=== PATIENT | male | born 1990 | race Caucasian/White ===

== ENCOUNTER 2025-05-17 16:23 | Emergency (ER) | payer MEDICAID, SELFPAY ==
[2025-05-17 16:23] VITALS: BMI 29.6
[2025-05-17 16:33] VITALS: BP 162/93; PULSE 94; RESP 18; TEMP 36.8; O2SAT 98
--- NOTE | 2025-05-17 16:43 | PD.EDBACK ---
ED Back Injury Pain RME/HPI General Chief Complaint: Back Pain/Injury Stated Complaint: PULLED SOMETHING IN BACK Time Seen by Provider: 05/17/25 16:24 Arrival date/time: 05/17/25 16:23 This is a 34-year-old male that comes in with complaints of mid back pain that started after lifting a heavy object at home today. Patient states that he feels like he pulled something. Patient already had existing back pain to this area. Patient is waiting to get his MRI with his primary provider. Patient denies any numbness tingling. Patient denies any loss of bowel or bladder control. Patient ambulatory. Related Data Home Medications ?Medication ?Instructions ?Recorded ?Confirmed omeprazole 40 mg capsule,delayed 40 mg PO BID 11/14/22 11/14/22 release Previous Rx's ?Medication ?Instructions ?Recorded albuterol sulfate 90 mcg/actuation 2 inh inhalation Q4H PRN shortness 01/18/23 aerosol inhaler of breath or wheezing #8.5 grams ibuprofen 800 mg tablet (IBU) 800 mg PO Q8H #20 tabs 04/05/24 Allergies Allergy/AdvReac Type Severity Reaction Status Date / Time No Known Allergies Allergy Verified 05/17/25 16:26 Course Orders Category Date Time Status CYCLObenzaPRINE [Flexeril] Med 05/17/25 16:43 Discontinued 10 mg PO X1 ONE HYDROcodone*/APAP 5/325 [[place] 5/325] Med 05/17/25 16:43 Discontinued 2 tab PO X1 ONE Ketorolac Inj [Toradol Inj] Med 05/17/25 16:43 Discontinued 30 mg IM X1 ONE Ondansetron Odt [Zofran Odt] Med 05/17/25 16:43 Discontinued 4 mg PO X1 ONE Vital Signs Vital signs: Vital Signs Temperature 98.3 F 05/17/25 16:33 Pulse Rate 94 05/17/25 16:33 Respiratory Rate 18 05/17/25 16:33 Blood Pressure 162/93 H 05/17/25 16:33 Pulse Oximetry (%) 98 05/17/25 16:33 Oxygen Delivery Method Room Air 05/17/25 16:33 Back Pain / Injury MDM Narrative MDM Narrative:: I spoke to patient at length. Patient is having pain in the exact area that he typically has pain. Patient currently waiting for an MRI with his primary provider. I did talk to him about possibly getting x-rays or CT scan. I would let him know that we can do those test today or I can just treat his pain at this time. Patient would like to just treat acute pain exacerbation. I talked to patient at length that if symptoms change or worsen that he needs to come back to the emergency room immediately. Otherwise to follow-up with primary provider as scheduled and wait for appointment for MRI. Medications / Prescriptions Medication administrations:: Medication Administration History Discontinued Medications Hydrocodone Bitart/Acetaminophen (Hydrocodone/Apap 5/325 Tablet) 2 tab PO X1 ONE Stop: 05/17/25 16:44 Last Admin: 05/17/25 16:51 Dose: 2 tab Documented By: CLOTILDE Cyclobenzaprine HCl (Cyclobenzaprine 5 Mg Tablet) 10 mg PO X1 ONE Stop: 05/17/25 16:44 Last Admin: 05/17/25 16:50 Dose: 10 mg Documented By: CLOTILDE Ketorolac Tromethamine (Ketorolac Inj 60 Mg/2 Ml Vial) 30 mg IM X1 ONE Stop: 05/17/25 16:44 Last Admin: 05/17/25 16:53 Dose: 30 mg Documented By: CLOTILDE Ondansetron HCl (Ondansetron Odt 4 Mg Tabrap) 4 mg PO X1 ONE; Protocol Stop: 05/17/25 16:44 Last Admin: 05/17/25 16:50 Dose: 4 mg Documented By: CLOTILDE Discharge Plan Prescriptions/Referrals Prescriptions/Med Rec: No Action albuterol sulfate 90 mcg/actuation HFA aerosol inhaler 2 inh inhalation Q4H PRN (Reason: shortness of breath or wheezing) Qty: 8.5 0RF omeprazole 40 mg capsule,delayed release(DR/EC) 40 mg PO BID ibuprofen [IBU] 800 mg tablet 800 mg PO Q8H Qty: 20 0RF Referrals: No Primary/Family,Physician [Primary Care Provider] - In 1 week Patient/Caregiver Discharge Instructions Print Language: Divehi
[2025-05-17] MEDS: CYCLObenzaPRINE 5 MG TABLET 10 MG PO (16:50)
[2025-05-17] MEDS: ONDANSETRON ODT 4 MG TABRAP PO (16:50)
[2025-05-17] MEDS: HYDROcodone/APAP 5/325 TABLET 2 TAB PO (16:51)
[2025-05-17] MEDS: KETOROLAC INJ 60 MG/2 ML VIAL 30 MG IM (16:53)
--- NOTE | 2025-05-17 17:34 | PD.EDRME ---
Rapid Medical Screening Exam RME Arrival date/time: 05/17/25 16:23 This is a 34-year-old male that comes in with complaints of mid back pain that started after lifting a heavy object at home today. Patient states that he feels like he pulled something. Patient already had existing back pain to this area. Patient is waiting to get his MRI with his primary provider. Patient denies any numbness tingling. Patient denies any loss of bowel or bladder control. Patient ambulatory. Patient is having pain in the exact area that he typically has pain. Patient currently waiting for an MRI with his primary provider. Patient given norco and toradol for pain and felt better but still felt pressure in mid back. CT thoracic and lumbar spine ordered. I have greeted and performed a focused initial assessment of this patient. Initial appropriate labs ordered at this time. A comprehensive ED assessment and evaluation of the patient and analysis of all test and completion of medical decision making process will be conducted by additional ED provider. Chief Complaint: Back Pain/Injury Time Seen by Provider: 05/17/25 16:24 Vital signs: Vital Signs Temperature 98.3 F 05/17/25 16:33 Pulse Rate 94 05/17/25 16:33 Respiratory Rate 18 05/17/25 16:33 Blood Pressure 162/93 H 05/17/25 16:33 Pulse Oximetry (%) 98 05/17/25 16:33 Oxygen Delivery Method Room Air 05/17/25 16:33
--- NOTE | 2025-05-17 17:38 | XR_ITS ---
Examination: CT thoracic spine, without contrast. 2-D sagittal reconstructions. 2-D coronal reconstructions. 3-D reconstructions. Date and time of exam:May 17, 2025 at 1746 hours INDICATIONS: Injury to the back today, back pain CTDI: vol (mGy):33.6 DLP: (mGycm):1262 Technique: Multiple 1.25 mm axial sections of the thoracic spine without intravenous contrast have been obtained. 2-D sagittal and coronal reconstructions have been obtained. 3-D reconstructions have been obtained. Low dose protocols were performed. One or more of the following dose reduction techniques were used; automated exposure control, adjustment of the mA and/or KV according to patient size, use of iterative reconstruction technique. Findings: Adequate alignment thoracic vertebral bodies on the lateral view No thoracic vertebral body compression fracture Thoracic pedicles, laminae, transverse and posterior spinous processes appear intact Soft tissue settings demonstrate no focal thoracic disc protrusion IMPRESSION: No acute thoracic fracture
--- NOTE | 2025-05-17 17:38 | XR_ITS ---
Examination: CT lumbar spine, without contrast. 2-D sagittal reconstructions. 2-D coronal reconstructions. 3-D reconstructions. Date and time of exam:May 17, 2025 1746 hours INDICATIONS: Injury to the lower back today, lower back pain CTDI: vol (mGy):32.9 DLP: (mGycm):1063 Technique: Multiple 1.25 mm axial sections of the lumbar spine without intravenous contrast have been obtained. 2-D sagittal and coronal reconstructions have been obtained. 3-D reconstructions have been obtained. Low dose protocols were performed. One or more of the following dose reduction techniques were used; automated exposure control, adjustment of the mA and/or KV according to patient size, use of iterative reconstruction technique. Findings: Adequate alignment lumbar vertebral bodies on the lateral view No lumbar vertebral body compression fracture Mild disc narrowing posteriorly at L5-S1 Lumbar pedicles, laminae, transverse and posterior spinous processes intact Soft tissue settings demonstrate no focal lumbar disc protrusion IMPRESSION: No lumbar fracture
[2025-05-17 18:19] VITALS: BP 133/90; PULSE 89; RESP 20; TEMP 36.9; O2SAT 97
--- NOTE | 2025-05-17 18:20 | PC.NURSE ---
Pt. refused to get into a gown.
--- NOTE | 2025-05-17 18:32 | EDNOTE_ITS ---
ED Back Injury Pain RME/HPI General Chief Complaint: Back Pain/Injury Stated Complaint: PULLED SOMETHING IN BACK Time Seen by Provider: 05/17/25 16:24 Arrival date/time: 05/17/25 16:23 RME / HPI RME / HPI Narrative: 05/17/25 16:23 This is a 34-year-old male that comes in with complaints of mid back pain that started after lifting a heavy object at home today. Patient states that he feels like he pulled something. Patient already had existing back pain to this area. Patient is waiting to get his MRI with his primary provider. Patient denies any numbness tingling. Patient denies any loss of bowel or bladder control. Patient ambulatory. Patient is having pain in the exact area that he typically has pain. Patient currently waiting for an MRI with his primary provider. Patient given norco and toradol for pain and felt better but still felt pressure in mid back. CT thoracic and lumbar spine ordered. I have greeted and performed a focused initial assessment of this patient. Initial appropriate labs ordered at this time. A comprehensive ED assessment and evaluation of the patient and analysis of all test and completion of medical decision making process will be conducted by additional ED provider. This section includes all my notes and documentations, including HPI, PE, and ED course. Irineo Franco MD HPI: 34yo male with no significant past medical history presents to the ED for a chief complaint of mid back pain. Patient states he was lifting a dresser a couple hours prior to arrival when he felt something tear in his back, reporting he's had significant pain since. No other injuries. No incontinence, weakness or any other associated symptoms. No other complaints reported. ROS: All negative except as documented in HPI. Physical Exam: General: Alert and oriented. No acute distress when remaining still. Eyes: Conjunctivae and lids clear. ENT: No nasal congestion. Neck: Supple. Heart: RRR. Lungs: No respiratory distress. Good air movement. No rhonchi, wheezing, rales. Abdomen: Soft and nontender. Back: Equivocal mid back spinal tenderness. Skin: Warm and dry. Neuro: Alert and oriented X 3. No peripheral motor deficits. I reviewed all diagnostic test results. My review of the CT thoracic spine report is unremarkable. My review of the CT lumbar spine report is unremarkable. At this point, diagnoses include back sprain. Recommended supportive care. Based on my best medical judgment, made decision no further evaluation or treatment indicated at this time. Patient understands and agrees to the discharge instructions customized and printed, see below. Discharge Instructions from Dr. Franco: --After evaluation, there is no emergency, such as complete compression of your spinal cord needing emergent surgery. Or spinal fracture. --You sprained your back. This means small tears to your soft structures, such as [id number]-cartilage. --Rest today and tomorrow. Then try to resume your normal activity. Prolonged inactivity is terrible for your body. --Apply ice for 20 minutes every 2-3 hours today and tomorrow. --Ibuprofen 800 mg every 6-8 hours today and tomorrow to decrease inflammation then as needed. --Cyclobenzaprine and Tylenol with codeine and lidocaine patches as needed. l. --See a private doctor on 05/22/2025 if not completely better. --Seek immediate medical care with paralysis in your foot, losing control of your bladder or bowels, saddle numbness (anal numbness), or with any concerns. Irineo Franco MD Related Data Home Medications ?Medication ?Instructions ?Recorded ?Confirmed omeprazole 40 mg capsule,delayed 40 mg PO BID 11/14/22 11/14/22 release Previous Rx's ?Medication ?Instructions ?Recorded albuterol sulfate 90 mcg/actuation 2 inh inhalation Q4 H PRN shortness 01/18/23 aerosol inhaler of breath or wheezing #8.5 g carlos ibuprofen 800 mg tablet (IBU) 800 mg PO Q8H #20 tabs 0 04/05/24 acetaminophen 300 mg-codeine 30 mg 2 tab PO Q8H PRN pa in #20 tabs 05/17/25 tablet cyclobenzaprine 10 mg tablet 10 mg PO Q8H PRN muscle s pasm #30 05/17/25 tabs ibuprofen 800 mg tablet 800 mg PO Q8H PRN pain #30 t abs 05/17/25 lidocaine 5 % topical patch 2 patch topical QDAY PRN p ain #30 05/17/25 (Lidoderm) ea Allergies Allergy/AdvReac Type Severity Reaction Status Date / Time No Known Allergies Allergy Verified 05/17/25 16:26 Review of Systems Review of Systems Systems Reviewed: All systems reviewed, normal except as documented Past Medical History Past Medical History NEUROLOGIC: Negative Neurological Disorders or Seizures CARDIAC: Negative Cardiac Disorders or Congestive Heart Failure RESPIRATORY: Positive Sleep Apnea; Negative Chronic Obstructive Pulmonary Disease (COPD) or Asthma GASTROINTESTINAL: Positive Gastrointestinal Disorders (FATTY LIVER) and Gastroesophageal Reflux Disease GENITOURINARY: Negative Genitourinary Disorders or Renal Disease MUSCULOSKELETAL: Negative Musculoskeletal Disorders ENDOCRINE: Negative Endocrine Disorders, Diabetes Mellitus Type 1 or Diabetes Mellitus Type 2 HEMATOLOGIC: Negative Blood Disorders or Sickle Cell Disease OTHER HISTORY: Negative Blood Transfusions, Anesthesia Reactions, Chicken Pox, Measles, Mumps or Cancer Family History FAMILY HISTORY: Positive Family Cancer (FATHER AND SISTER MELANOMA) Surgical History SURGICAL: Positive Tonsillectomy Social History SMOKING STATUS: Never smoker SUBSTANCE USE: does not use ED Exam Narrative Physical exam: As noted in HPI. Course Quality Measures none Orders Category Date Time Status CT lumbar spine wo con Stat Exams 05/17/25 17:[address] thoracic spine wo con Stat Exams 05/17/25 17:38 Completed CYCLObenzaPRINE [Flexeril] Med 05/17/25 16:43 Discontinued 10 mg PO X1 ONE HYDROcodone*/APAP 5/325 [[place] 5/325] Med 05/17/25 16:43 Discontinued 2 tab PO X1 ONE Ketorolac Inj [Toradol Inj] Med 05/17/25 16:43 Discontinued 30 mg IM X1 ONE Ondansetron Odt [Zofran Odt] Med 05/17/25 16:43 Discontinued 4 mg PO X1 ONE Vital Signs Vital signs: Vital Signs Temperature 98.3 F 05/17/25 16:33 Pulse Rate 94 05/17/25 16:33 Respiratory Rate 18 05/17/25 16:33 Blood Pressure 162/93 H 05/17/25 16:33 Pulse Oximetry (%) 98 05/17/25 16:33 Oxygen Delivery Method Room Air 05/17/25 16:33 Back Pain / Injury MDM Narrative MDM Narrative:: 34yo male with no significant past medical history presents to the ED for a chief complaint of mid back pain. Patient states he was lifting a dresser a couple hours prior to arrival when he felt something tear in his back, reporting he's had significant pain since. No other injuries. No incontinence, weakness or any other associated symptoms. No other complaints reported. Patient data External records reviewed:: [facility] previous records (Per chart review, patient was seen here on 04/05/24 for body aches.) Clinical information provided by:: patient Social determinants that could affect healthcare access:: none Patient has the following chronic illnesses:: none How is presenting disease/condition affected by chronic disease/condition?: no chronic disease Evaluation data The following diagnostics were reviewed and interpreted by me:: radiology exam(s) Lab and/or radiology exams considered but not ordered:: none Interpretation Summary: I reviewed all diagnostic test results. My review of the CT thoracic spine report is unremarkable. My review of the CT lumbar spine report is unremarkable. Medications / Prescriptions Medications or Prescriptions considered but not ordered:: none Medication administrations:: Medication Administration History Discontinued Medications Hydrocodone Bitart/Acetaminophen (Hydrocodone/Apap 5/325 Tablet) 2 tab PO X1 ONE Stop: 05/17/25 16:44 Last Admin: 05/17/25 16:51 Dose: 2 tab Documented By: CLOTILDE Cyclobenzaprine HCl (Cyclobenzaprine 5 Mg Tablet) 10 mg PO X1 ONE Stop: 05/17/25 16:44 Last Admin: 05/17/25 16:50 Dose: 10 mg Documented By: CLOTILDE Ketorolac Tromethamine (Ketorolac Inj 60 Mg/2 Ml Vial) 30 mg IM X1 ONE Stop: 05/17/25 16:44 Last Admin: 05/17/25 16:53 Dose: 30 mg Documented By: CLOTILDE Ondansetron HCl (Ondansetron Odt 4 Mg Tabrap) 4 mg PO X1 ONE; Protocol Stop: 05/17/25 16:44 Last Admin: 05/17/25 16:50 Dose: 4 mg Documented By: CLOTILDE [place], Flexiril, Toradol, Zofran Consultations Consultation(s) initiated? (list below): No Diagnosis Differential diagnosis back pain/injury: lumbar radiculopathy, sciatica, strain of lumbar region, renal colic, pyelonephritis and thoracic back pain Most likely diagnosis given after review of the tests above:: Back sprain Admission Indicated Admission indicated?: not indicated Explain why admission is indicated or not indicated:: With no condition needing emergent intervention, there was no indication for admission. Admission Request Was there a request for admission?: No Disposition Plan Disposition Plan: Discharge Discharge Attestation Discharge Attestation: The patient and all family members were given an opportunity to ask questions and understood the discharge instructions. Discharge instructions specifically effects, indications for sooner follow up or return to the emergency department, and the expected course of current diagnosis. Patient condition: Stable Discharge Plan Plan Patient Disposition: HOME (Self Care) Prescriptions/Referrals Prescriptions/Med Rec: New cyclobenzaprine 10 mg tablet 10 mg PO Q8H PRN (Reason: muscle spasm) Qty: 30 0RF ibuprofen 800 mg tablet 800 mg PO Q8H PRN (Reason: pain) Qty: 30 0RF acetaminophen-codeine 300-30 mg tablet 2 tab PO Q8H MDD 6 PRN (Reason: pain) Qty: 20 0RF lidocaine [Lidoderm] 5 % adhesive patch,medicated 2 patch topical QDAY PRN (Reason: pain) Qty: 30 0RF Rx Instructions: leave on most painful area for up to 12 hrs No Action albuterol sulfate 90 mcg/actuation HFA aerosol inhaler 2 inh inhalation Q4H PRN (Reason: shortness of breath or wheezing) Qty: 8.5 0RF omeprazole 40 mg capsule,delayed release(DR/EC) 40 mg PO BID ibuprofen [IBU] 800 mg tablet 800 mg PO Q8H Qty: 20 0RF Referrals: No Primary/Family,Physician [Primary Care Provider] - In 1 week Problem List Clinical Impression: Back sprain Patient/Caregiver Discharge Instructions Discharge Activity: activity as tolerated Education Materials: ED Back Sprain/Strain Additional Instructions: Discharge Instructions from Dr. Franco: --After evaluation, there is no emergency, such as complete compression of your spinal cord needing emergent surgery. Or spinal fracture. --You sprained your back.? This means small tears to your soft structures, such as sfixlgr-[id number]-okpusfepf-cartilage.? --Rest today and tomorrow. Then try to resume your normal activity. Prolonged inactivity is terrible for your body. --Apply ice for 20 minutes every 2-3 hours today and tomorrow. --Ibuprofen 800 mg every 6-8 hours today and tomorrow to decrease inflammation then as needed. --Cyclobenzaprine and Tylenol with codeine and lidocaine patches as needed.? l. --See a private doctor on 05/22/2025 if not completely better. --Seek immediate medical care with paralysis in your foot, losing control of your bladder or bowels, saddle numbness (anal numbness), or with any concerns.?? Print Language: Palestinian Stand Alone Forms: Candice Award Info., Patient Portal Info Letter
[2025-05-17 18:59] VITALS: BP 133/90; PULSE 78; RESP 18; TEMP 36.6; O2SAT 98
== END 2025-05-17 19:00 | disposition home or self-care (01) ==
PROVIDERS: Emergency Provider Emergency Medicine
DX: S33.5XXA Sprain of ligaments of lumbar spine, initial encounter (principal); X58.XXXA Exposure to other specified factors, initial encounter
CPT/HCPCS: 72128; 72131; 96372; 99284; J1885; Q0162; A9270

== ENCOUNTER → 2025-07-13 | Outpatient (CLI) | payer MEDICAID, SELFPAY ==
--- NOTE | 2025-07-13 12:30 | XR_ITS ---
Examination: MRI cervical spine without intravenous contrast Date and time of exam: July 13, 2025 1326 hours INDICATIONS: Neck pain and numbness in the arms 6 months Technique: Multiple axial and sagittal sections of the cervical spine to been obtained. T2 weighted sagittal sections, TR 3, 270, TE 117 T1-weighted sagittal sections, TR 500, TE 11 T1-weighted axial sections, TR 607, TE 12, axial sections TR 18, TE 27 and T2 weighted transverse sections, TR 3920, TE 122. Findings: Adequate alignment cervical vertebral bodies No cervical fracture Minimal disc narrowing C5-C6 Intact odontoid No localized enlargement cervical cord C2-C3 no disc protrusion C3-C4 no disc protrusion C4-C5 no disc protrusion C5-C6 no disc protrusion C6-C7 no disc protrusion C7-T1 no disc protrusion IMPRESSION: No cervical fracture No focal cervical disc protrusion
== END | disposition home or self-care (01) ==
LOC: SMRI 12:06
PROVIDERS: PCP Nurse Practitioner Family; Referring Provider Nurse Practitioner Family; Visit Provider Nurse Practitioner Family
DX: M47.22 Other spondylosis with radiculopathy, cervical region (principal)
CPT/HCPCS: 72141